=== PATIENT | female | born 1980 | race Caucasian/White ===

== ENCOUNTER 2017-05-20 13:14 | Emergency (ER) | payer OTHER ==
--- NOTE | ~2017-05-20 | ER ---
PATIENT'S NAME: NADYA [facility] AGE: 37 Y [address] ROOM: [place] [address] LOCATION: ED ADMIT DATE: 05/20/2017 ER/Outpatient Report DISCHARGE DATE: 05/20/2017 FAMILY PHYSICIAN: Jett Dempsey MD ATTENDING PHYSICIAN: Rubin Yan CHIEF COMPLAINT: Left-sided back pain. HISTORY OF PRESENT ILLNESS: Ms. Middleton presents to the ER for evaluation of back pain. The time of onset 11:30 a.m. It is moderate in nature. It is located on the left side and does not radiate. She is approximately 1 week status post breast reduction surgery. She is recovering well, otherwise. She denies any other pertinent significant medical history. She reports that she is otherwise doing well. PAST MEDICAL HISTORY: Documented on the record and reviewed by me. SOCIAL HISTORY: Documented on the record and reviewed by me. MEDICATIONS: Documented on the record and reviewed by me. ALLERGIES: DOCUMENTED ON THE RECORD AND REVIEWED BY ME. REVIEW OF SYSTEMS: All systems are reviewed and are negative except as noted in the HPI. PHYSICAL EXAMINATION: VITAL SIGNS: Blood pressure 148/99, pulse 71, respiratory rate 20, temperature 96.7, and SpO2 is 98% on room air. Pain is rated 7/10. GENERAL: Age-appropriate female, upright on exam table, no apparent pain or distress. HEENT: Normocephalic, atraumatic. Eyes are PERRL. Oropharynx clear. NECK: Supple. Trachea is midline. CHEST/HEART: Regular rate and rhythm with no murmurs. LUNGS: Clear to auscultation bilateral. No rhonchi, wheezes, or rales. ABDOMEN: Soft, nontender, and nondistended. No rebound, guarding, or tenderness. SPINE: Back is normal to inspection and palpation of the spine. The left paraspinal region is tender inferior to the scapula. Poorly localizable to point tenderness, but focal to the posterior aspects inferior to the angle of PATIENT'S NAME: NADYA [facility] AGE: 37 Y [address] ROOM: [place] [address] LOCATION: ED ADMIT DATE: 05/20/2017 ER/Outpatient Report DISCHARGE DATE: 05/20/2017 FAMILY PHYSICIAN: Jett Dempsey MD ATTENDING PHYSICIAN: Rubin Yan the scapula. Manipulation of the shoulder does not exacerbate any of the discomfort. No skin changes. SKIN: Clean, dry, and intact. Otherwise, no rashes. Surgical incision is healing well. NEUROLOGIC: Awake and alert. GCS 15. No focal deficits. No asymmetry. No weakness or paresthesias in the upper extremities. LABORATORY DATA AND X-RAYS: None. IMPRESSION: Acute musculoskeletal back pain. EMERGENCY DEPARTMENT COURSE: The patient was seen and evaluated as above. There was concern about pulmonary embolism on the part of the patient. She is low risk by Wells and PERC negative. Thus, we will not pursue any further evaluation. I also do not believe that she has a PE at this time. We will have her use anti- inflammatories as well as ice and heat as needed. Follow up with her primary care physician as needed. All questions were answered, and the patient was discharged in good condition. MD BARNEY WILSON/shashil /[id number] d: 05/20/17 1858 t: 06/06/17 0859, OUTPATIENT REPORT
[~2017-05-20 13:14] MED LIST: ASPIRIN EC81 MG PO; COLACE100 MG PO; DAILY VALUE1 EACH PO; LINZESS145 MCG PO; MOTRIN800 MG PO; NORCO 5-325 MG1 TAB PO; PERCOCET 5-3251 EACH PO; PHENERGAN25 M1 PO; PLAVIX75 MG PO; PRAVACHOL40 MG PO; PRILOSEC40 MG PO; PROTONIX40 MG PO; TOPAMAX200 MG PO; TYLENOL325 MG PO; VERAPAMIL ER120 M1 PO; ZOFRAN4 MG PO; ZOLOFT100 MG PO
== END 2017-05-20 13:46 | disposition disaster alternative care site (69) ==
LOC: GMED 13:14
DX: M54.9 Dorsalgia, unspecified (principal); Z88.0 Allergy status to penicillin; Z86.73 Personal history of transient ischemic attack (TIA), and cerebral infarction without residual deficits; Z79.899 Other long term (current) drug therapy; Z98.82 Breast implant status; Z98.890 Other specified postprocedural states

== ENCOUNTER → 2017-07-06 | Outpatient (CLI) | payer OTHER | LOC: GNUT 08:40 | DX: K20.0 Eosinophilic esophagitis (principal); Z71.3 Dietary counseling and surveillance; E66.9 Obesity, unspecified ==